=== PATIENT | female | born 1965 | race Caucasian/White ===

== ENCOUNTER → 2023-10-17 06:19 | Day surgery (SDC) | payer OTHER, SELFPAY | LOC: GI 06:19 | PROVIDERS: ATTENDING PHYSICIAN Internal Medicine Gastroenterology | DX: K62.5 Hemorrhage of anus and rectum (principal); K57.30 Diverticulosis of large intestine without perforation or abscess without bleeding; K64.0 First degree hemorrhoids; K63.5 Polyp of colon; D12.3 Benign neoplasm of transverse colon | CPT/HCPCS: 45380; 45381; 88305 ==

== ENCOUNTER 2024-02-17 06:22 | Day surgery (SDC) | payer OTHER, SELFPAY ==
[2024-02-17 11:42] VITALS: BMI 22.1
[2024-02-17 12:09] VITALS: BMI 22.1
[2024-02-17 12:10] VITALS: BP 116/81
[2024-02-17 14:58] VITALS: BP 117/94
[2024-02-17 15:16] VITALS: BP 118/81
== END 2024-02-17 15:35 | disposition home or self-care (01) ==
LOC: SDS 06:22
PROVIDERS: ATTENDING PHYSICIAN Internal Medicine Gastroenterology
DX: D12.0 Benign neoplasm of cecum (principal); D12.3 Benign neoplasm of transverse colon; K57.30 Diverticulosis of large intestine without perforation or abscess without bleeding; K64.0 First degree hemorrhoids
CPT/HCPCS: 45390; 45385; 88305

== ENCOUNTER 2024-12-14 06:24 | Day surgery (SDC) | payer OTHER, SELFPAY ==
[2024-12-14 07:01] VITALS: BMI 22.5
[2024-12-14 07:02] VITALS: BP 136/85
[2024-12-14 09:10] VITALS: BP 105/67
[2024-12-14 09:15] VITALS: BP 121/77
[2024-12-14 09:30] VITALS: BP 115/75
== END 2024-12-14 10:00 | disposition home or self-care (01) ==
LOC: SDS 06:24
PROVIDERS: ATTENDING PHYSICIAN Internal Medicine Gastroenterology
DX: K63.5 Polyp of colon (principal); K64.0 First degree hemorrhoids; K57.50 Diverticulosis of both small and large intestine without perforation or abscess without bleeding; Z86.0101 Personal history of adenomatous and serrated colon polyps; R93.3 Abnormal findings on diagnostic imaging of other parts of digestive tract
CPT/HCPCS: 45388; 45385; 45380; 43235; 88305

== ENCOUNTER → 2025-03-06 09:00 | Outpatient (REF) | payer OTHER, SELFPAY | LOC: RCS 09:00 | PROVIDERS: ATTENDING PHYSICIAN Nurse Practitioner Family | DX: R00.2 Palpitations (principal) | CPT/HCPCS: 93225; 93226 ==